=== PATIENT | male | born 1945 | race Caucasian/White ===

== ENCOUNTER 2016-07-20 10:51 | Inpatient (IN) | payer MEDICARE, BC ==
[2016-07-20] MEDS ORDERED: Acetaminophen 325 MG Tab PO ONE (11:43)
[2016-07-20] MEDS ORDERED: Sodium Chloride 0.9% 10 ML Syringe FLUSH PRN (11:43)
[2016-07-20] MEDS ORDERED: Sodium Chloride 0.9% 1,000 ML IV ONE (11:55)
[2016-07-20 12:09] LABS: CHLORIDE,CL 97 mmol/L (101-111); SODIUM,NA 134 mmol/L (135-145)
[2016-07-20] MEDS ORDERED: Levofloxacin/Dextrose 5%-Water 500 MG in Premix Bag 1 BAG IV ONE (12:33)
[2016-07-20] MEDS ORDERED: Dexamethasone 4 MG/ML SDV IVPUSH ONE (13:33)
[2016-07-20] MEDS ORDERED: Ketorolac 30 MG/ML SDV IVPUSH PRN ×2 (13:33→13:39)
[2016-07-20] MEDS ORDERED: Acetaminophen 500 MG Tab ONE (13:34)
[2016-07-20] MEDS ORDERED: Ketorolac 30 MG/ML SDV ONE (13:34)
[2016-07-20] MEDS ORDERED: Oseltamivir 75 MG Cap ONE (13:34)
[2016-07-20] MEDS: Oseltamivir 75 MG Cap PO SCH ×2 (13:42→21:38)
[2016-07-20] MEDS ORDERED: Zolpidem 5 MG Tab PO PRN (13:44)
[2016-07-20] MEDS ORDERED: Ondansetron 4 MG/2 ML SDV IVPUSH PRN ×2 (13:44→22:23)
[2016-07-20] MEDS ORDERED: Acetaminophen 325 MG Tab PO PRN (13:50)
--- NOTE | 2016-07-20 14:48 | ER ---
SUBJECTIVE: The patient is a 70-year-old male, who is normally fairly healthy. He has hypertension, but has been having a cold over the last week or so, just mild cold symptoms, but no specific shortness of breath. No chest pain. No nausea or vomiting. No bleeding. No bowel or bladder changes. No falls or trauma. He comes in today with his , because he has a fever this morning, and he has some confusion, and a little bit of hallucinations, and is not behaving like himself. He is walking around, very talkative, very interactive, and pleasant, but just appears somewhat confused, and was grabbing at things. His states that his symptoms began this morning at 05:00 a.m. He began to what she recalled "hallucinate", and she describes this as the patient picking buttons in the car while his was driving, trying to get out, does not know where he is. His had called the clinic and they told them to come to the ER. He denied any chest pain, shortness of breath. He did have a fever this morning. Apparently, he got mad at his when he could not get out of the car. He is not sure of his location or what day it is. He did take some DayQuil today, but his states that he has had DayQuil in the past and has never been bothersome. Again, no head trauma. No specific neurologic changes such as upper or lower extremity weakness, dysarthria, dysphagia, no vision changes, no syncope, or seizures. PAST MEDICAL HISTORY: Significant for hemochromatosis. He has had multiple bloodletting for this. He has hypertension. He has normally been fairly healthy. CURRENT MEDICATIONS: Include lisinopril 20 mg p.o. daily. ALLERGIES: He is not allergic to any medications. SOCIAL HISTORY: He is , here with his . Otherwise, noncontributory. REVIEW OF SYSTEMS: Fever today. Mild cold symptoms last week with a cough and some congestion. No neck pain or stiffness. No chest pain. No real shortness of breath. No abdominal pain. No back pain. No nausea or vomiting. No melena, BRBPR. No other bowel or bladder changes. He has been active, drinking, and eating okay. No bites, stings, or rashes. OBJECTIVE: Vital Signs: His height is 1.8 meters, weight is 86.2 kg. His temperature on arrival is 39.9, heart rate is 108, blood pressure is 161/89, oxygen sats 93% room air. General: He is very pleasant, smiling, talkative, interactive, absolutely very cooperative, and a healthy-appearing actually overall. However, he is confused where he is. He rambles on and states things that have occurred that his shakes her head and says no. He has no respiratory distress. HEENT: normocephalic and atraumatic. No specific sinus tenderness or fullness. Ears are unremarkable. Conjunctivae are clear. Mucous membranes are moist. Throat is clear. Neck: Full range of motion. No nuchal rigidity. No lymphadenopathy. Chest: It is nontender. It is clear. He has occasional cough. No respiratory distress. No wheezing, rhonchi, or rales. CV: RRR. Abdomen: Soft, benign. Back: No CVAT. Extremities: He has good pulses in all extremities. Lower extremities, no edema. No calf tenderness. He stands up well, ambulates up and down, moves all extremities well. Skin: Clear. Warm. Neurologic: No focal neurologic changes or weaknesses. No signs of CVA. He has no dysarthria. He will follow all commands. LAB/STUDIES: White count is normal at 8.7, he has no anemia. Platelets are mildly low at 127. His differential shows elevated PMNs at 81.2. No band cells. His sed rate is normal at 10. His electrolytes are fairly unremarkable. Sodium is 134, potassium 3.5, chloride is 97. His anion gap was normal. BUN and creatinine are normal. His glucose is 109. Lactic acid is normal at 1.5. His liver function tests are unremarkable. Amylase is normal. His urine is slightly cloudy, has trace protein, has some ketones, moderate occult blood, but is negative for leukocyte esterase, negative for nitrites. It is sent for culture. His CRP is elevated at 4.3. His chest x-ray is unremarkable. A noncontrast CAT scan of his head is also unremarkable. Electrocardiogram does not show any acute changes. EMERGENCY ROOM COURSE: He was given some Tylenol for his fever, it went down from 105.8 to 103.3 and continues to drop. He tolerated this well. He remained stable, pleasant, and cooperative, but remains in a somewhat confused state. I did discuss all the workup with he and his attendant . I also discussed this with the hospitalist, and discussed the patient's exam and the workup and all the findings to this point. He did agree to accept the patient. His blood is cultured, and his urine is cultured, and he was given a dose of Levaquin, and he will be transferred to the floor. Influenza is positive. ASSESSMENT: 1. Fever of unknown origin, normal WBC, lactate and CXR; however, FLU is positive 2. Mental status changes with workup, unremarkable, including CT head. 3. Mild cold symptoms with congestion and cough for the past week; CXR is NR for acute pulmonic diseases, including atypical PNA such as coccidiomycoses, etc, as pt was just recently in [place] and [place] area. 4. Patient with history of hypertension and hemochromatosis. PLAN: Admit into the hospital. Continue with care. The urine and blood cultures already been obtained. [facility] /[id number] JULIO
--- NOTE | 2016-07-20 15:04 | PCM.HP ---
H&P History of Present Illness - General Date of Service: 07/20/16 Admit Problem/Dx: Admission Diagnosis/Problem Admission Diagnosis/Problem Influenza due to influenza A virus - History of Present Illness Initial Comments - Free Text/Narative: 70-year-old gentleman with past medical history of hypertension presented the emergency room with the fever, chills, delirious, deep cough, sinus congestion, decrease in appetite started 5 days ago but got worse this morning. stated that patient woke up early this morning and he started dressing himself stating that is going for lunch. he was acting very unusual. patient states that his cough started 5 days ago but the fever and chills started days ago. Patient denies headache except when he coughs. He denies runny nose, sore throat, ear pain, postnasal drip, sinus pressure, shortness breath, wheezing, nausea, vomiting, change in vision, unilateral weakness, abdomen pain, diarrhea, dysuria , frequency or any urinary symptoms, rash, swelling lymph nodes, numbness, tingling, facial drooping. he denies recent change of weight.patient denies history of asthma, COPD, current or former smoking, lung disease, any chronic disease other than hypertension. patient was in [place] for 6 days and just left [place], driving, 1 days after his cough started in the emergency room patient temperature was 41.0 C, and according to set ER physician he was delirious. he was given Tylenol 650 mg but did not drop his temperature enough. whenI saw her in the emergency room he did not seem to be in acute distress but his said that he is still not himself. he felt very warm. I ordered Toradol 30 mg IV, Decadron 20 mg IV once, Tylenol 500 mg orally once. one hour later patient felt much better. His fever resolved. he received 1L of IV fluid as a bolus ER workup was consistent with positive influenza A.negative rapid strep test. WBC 8.7. Neutrophils 81.2%.mono 8.9%. Platelet 27.lactic acid 1.5, creatinine 1.0, BUN 18, sodium 1-4, potassium 3.5, glucose 109, CRP 4.3, AST 59, ALT 21. UA unremarkable - Related Data Allergies/Adverse Reactions: Allergies Allergy/AdvReac Type Severity Reaction Status Date / Time No Known Allergies Allergy Verified 07/20/16 14:02 Home Medications: Home Meds Gluc HCl/Csa/Anthony Hy/Hyalur Ac [Glucosamine Chondroitin] 1 each PO DAILY [History] Lisinopril 20 mg PO BID 07/20/16 [History] Past Medical History Cardiovascular History: Reports: Hypertension Hematologic History: Reports: Hemochromatosis - Infectious Disease History Infectious Disease History: Reports: Chicken pox Social & Family History - Family History Family Medical History: Noncontributory - Tobacco Use Smoking Status *Q: Never Smoker Second Hand Smoke Exposure: No - Caffeine Use Caffeine Use: Reports: Coffee, Soda - Recreational Drug Use Recreational Drug Use: No H&P Review of Systems - Review of Systems: Review Of Systems: See Below General: Reports: malaise HEENT: Reports: eye pain. Denies: vertigo Cardiovascular: Reports: no symptoms. Denies: chest pain Genitourinary: Reports: no symptoms Musculoskeletal: Denies: joint pain, muscle stiffness Skin: Reports: no symptoms Psychiatric: Reports: confusion. Denies: anxiety Neurological: Denies: Dizziness, Syncope Hematologic/Lymphatic: Denies: anemia, easy bleeding, swollen glands Immunologic: Denies: anaphylaxis, seasonal allergy Exam - Exam Exam: See Below - Vital Signs Vital Signs: Last Vital Signs Temp 37.1 C 07/20/16 13:44 Pulse 90 07/20/16 13:44 Resp 20 07/20/16 13:44 BP 125/72 07/20/16 13:44 Pulse Ox 97 07/20/16 13:46 Weight: 89.448 kg - Exam General: alert, oriented, cooperative, mild distress. No: severe distress, sedated, lethargic, obtunded HEENT: Conjunctiva clear, EACs clear, EOMI, Hearing intact, Nares patent, Normal nasal septum, Posterior pharynx clear, Pupils equal, Pupils reactive, TMs clear, Other (dry mucosa, edematous nares, no sinus tenderness), PERRLA Neck: supple, trachea midline, full range of motion. No: lymphadenopathy, JVD, thyromegaly Lungs: Clear to auscultation, Normal respiratory effort. No: Crackles, Rales, Rhonchi, Rub, Stridor, Wheezing Cardiovascular: regular rate, regular rhythm, normal S1, normal S2 Abdomen: normal bowel sounds, soft. No: organomegaly, peritoneal signs, distention, guarding, rigidity, rebound, tenderness (Male) Exam: No hernia Back Exam: normal inspection Extremities: normal inspection. No: clubbing, cyanosis, calf tenderness, edema Skin: warm, dry, intact. No: rash, petechia, ecchymosis Neurological: cranial nerves intact, reflexes equal bilateral, strength equal bilateral, normal speech. No: focal deficit, Babinski, clonus, reflexes unequal Neuro Extensive - Mental Status: alert, oriented x3, normal mood/affect, normal cognition, memory intact Neuro Extensive - Motor, Sensory, Reflexes: CN II-XII intact, normal gait, normal reflexes Psychiatric: alert, normal affect, normal mood. No: agitated, suicidal ideation , homicidal ideation, hallucinations - Patient Data Result Diagrams: 07/20/16 11:35 07/20/16 11:35 Rodriguez Results last 24 hrs: Microbiology 07/20/16 13:04 Influenza Type A Antigen Screen - Final Nasopharyngeal Swab Positive Influenza A Ag Influenza Type B Antigen Screen - Final NEGATIVE INFLUENZA B VIRUS AG 07/20/16 13:04 Group A Streptococcus Rapid Screen - Final Throat NEGATIVE STREP A SCREEN *Q Meaningful Use (ADM) - VTE *Q VTE Criteria *Q: - Stroke *Q Stroke Criteria *Q: - AMI *Q AMI Criteria *Q: - Problem List (1) Sepsis SNOMED Code(s): 43101979 ICD Code: A41.9 - SEPSIS, UNSPECIFIED ORGANISM Status: Acute Priority: High Current Visit: Yes (2) Influenza A SNOMED Code(s): 083729587 ICD Code: J10.1 - FLU DUE TO OTH IDENT INFLUENZA VIRUS W OTH RESP MANIFEST Status: Acute Priority: High Current Visit: Yes (3) Acute encephalopathy SNOMED Code(s): 3679082 ICD Code: G93.40 - ENCEPHALOPATHY, UNSPECIFIED Status: Acute Priority: High Current Visit: Yes (4) Hypokalemia SNOMED Code(s): 41869205 ICD Code: E87.6 - HYPOKALEMIA Status: Acute Priority: Low Current Visit : Yes (5) Hyponatremia SNOMED Code(s): 91694741 ICD Code: E87.1 - HYPO-OSMOLALITY AND HYPONATREMIA Status: Acute Priority : Low Current Visit: Yes (6) Hypertension SNOMED Code(s): 05176844 ICD Code: I10 - ESSENTIAL (PRIMARY) HYPERTENSION Status: Chronic Current Visit: Yes Problem List Initiated/Reviewed/Updated: Yes Orders Last 24hrs: Active Orders 24 hr Category Date Time Status Patient Status [ADT] Routine ADT 07/20/16 13:44 Active Intake and Output [RC] Q6H Care 07/20/16 13:46 Active Oxygen Therapy [RC] PRN Care 07/20/16 13:44 Active Pulse Oximetry [RC] PRN Care 07/20/16 13:46 Active Up ad Eli [RC] ASDIRECTED Care 07/20/16 13:44 Active VTE/DVT Education [RC] PER UNIT ROUTINE Care 07/20/16 13:44 Active Vital Signs [RC] Q4H Care 07/20/16 13:44 Active Regular Diet [DIET] Diet 07/20/16 Breakfast Active BASIC METABOLIC PANEL,BMP [CHEM] AM Lab 07/21/16 05:11 Ordered C-REACTIVE PROTEIN [REF] Routine Lab 07/21/16 05:00 Ordered CBC WITH AUTO DIFF [HEME] AM Lab 07/21/16 05:11 Ordered CULTURE STREP A CONFIRMATION [RM] Stat Lab 07/20/16 13:04 Results STREP SCRN A RAPID W CULT CONF [RM] Stat Lab 07/20/16 13:04 Results Acetaminophen [Tylenol] Med 07/20/16 13:50 Active 650 mg PO Q6H PRN Enoxaparin [Lovenox] Med 07/20/16 21:00 Active 40 mg SUBCUT Q12HR Ketorolac [Toradol] Med 07/20/16 13:39 Active 15 mg IVPUSH Q6H PRN Lactated Ringers [Ringers, Lactated] 1,000 ml Med 07/20/16 13:45 Active IV ASDIRECTED Ondansetron [Zofran] Med 07/20/16 13:44 Active 4 mg IVPUSH Q6H PRN Oseltamivir [Tamiflu] Med 07/20/16 21:00 Active 75 mg PO BID Zolpidem [Ambien] Med 07/20/16 13:44 Active 5 mg PO BEDTIME PRN Resuscitation Status Routine Resus Stat 07/20/16 13:44 Ordered Medication Orders Acetaminophen (Tylenol) 650 mg PO Q6H PRN PRN Reason: fever, pain Enoxaparin Sodium (Lovenox) 40 mg SUBCUT Q12HR EULOGIO Lactated Ringer's (Ringers, Lactated) 1,000 mls @ 100 mls/hr IV ASDIRECTED EULOGIO Ketorolac Tromethamine (Toradol) 15 mg IVPUSH Q6H PRN PRN Reason: fever, body aches Stop: 07/25/16 13:34 Last Admin: 07/20/16 13:49 Dose: 15 mg Ondansetron HCl (Zofran) 4 mg IVPUSH Q6H PRN PRN Reason: Nausea/Vomiting Oseltamivir Phosphate (Tamiflu) 75 mg PO BID [facility] Stop: 07/25/16 21:01 Last Admin: 07/20/16 13:42 Dose: 75 mg Sodium Chloride (Saline Flush) 10 ml FLUSH ASDIRECTED PRN PRN Reason: Keep Vein Open Last Admin: 07/20/16 13:42 Dose: 10 ml Zolpidem Tartrate (Ambien) 5 mg PO BEDTIME PRN PRN Reason: Sleep Assessment/Plan Comment:: sepsis, due to viral infection with influenza A. we'll give t2 L of IV fluids as a bolus, then continue on LR at 100 cc per hour Tamiflu 75 mg b.i.d. for 5 days recheck lactic acid Influenza A Chest x-ray is unremarkable for acute findings patient said he received his influenza shot this year Tamiflu 75 mg b.i.d. for 5 days He received one dose of Decadron 20 mg IV once and Toradol 30 mg IV once in ER Toradol 15 mg every 6 hours as needed for fever and body aches IV fluids infusion Encouraged oral fluid intake Acute encephalopathy Due to sepsis from an influenza CT of the head did not show any acute findings however it showed chronic lacunar infarct right cerebral white matter. I discussed that with patient. Patient denies history of stroke. I informed him to discuss that with his primary care provider and he agreed We'll treat the cause as above Hypokalemia, mild We'll replace orally was 40 KCl hypernatremia, mild Encourage oral fluid Hypertension we'll hold his listener probe since he is having sepsis and resume it if his blood pressure gets high today otherwise we'll address it tomorrow patient is full code Lovenox for DVT prophylaxis Plan of care was discussed with patient and he verbalized understanding and agreed with
[2016-07-20] MEDS ORDERED: Potassium Chloride 10 MEQ Tab.ER PO ONE (15:22)
[2016-07-20] MEDS: Lactated Ringers 1,000 ML IV SCH (15:38)
[2016-07-20] MEDS: Aspirin 81 MG Tab.Chew PO SCH (17:11)
[2016-07-20] MEDS: Enoxaparin 40 MG/0.4 ML Syringe SUBCUT SCH (21:40)
[2016-07-20] MEDS ORDERED: Benzocaine/Cetylpyridinium/Menthol Lozenge MUCMEM PRN (22:06)
[2016-07-21] MEDS: Lactated Ringers 1,000 ML IV SCH (01:32)
[2016-07-21 07:06] LABS: CHLORIDE,CL 104 mmol/L (101-111); SODIUM,NA 136 mmol/L (135-145)
--- NOTE | 2016-07-21 09:06 | PCM.PN ---
- General Info Date of Service: 07/21/16 Admission Dx/Problem (Free Text): Admission Diagnosis/Problem Admission Diagnosis/Problem Influenza due to influenza A virus Functional Status: Reports: pain controlled, ambulating, urinating - Review of Systems General: Reports: Appetite (good). Denies: Fever, Chills HEENT: Denies: headaches, sinus congestion, sore throat, visual changes Pulmonary: Denies: shortness of breath, cough, sputum, wheezing Cardiovascular: Denies: Chest Pain, Dyspnea on Exertion, Lightheadedness Gastrointestinal: Denies: Abdominal pain, Diarrhea, Nausea, Vomiting Genitourinary: Denies: dysuria, burning, urgency, flank pain Musculoskeletal: Denies: neck pain, shoulder pain, leg pain, joint pain Skin: Denies: cyanosis, jaundice, bruising, pruritis, rash Neurological: Denies: Confusion, Headache, Numbness, Tingling Psychiatric: Denies: confusion, anxiety - Patient Data Vitals - most recent: Last Vital Signs Temp 36.9 C 07/21/16 07:50 Pulse 63 07/21/16 07:50 Resp 20 07/21/16 07:50 BP 167/81 H 07/21/16 07:50 Pulse Ox 99 07/21/16 07:50 Weight - most recent: 89.448 kg I&O - last 24 hours: Intake & Output 07/20/16 07/21/16 07/21/16 22:59 06:59 14:59 Intake Total 958 2099 Output Total 1350 450 Balance 958 749 -450 Lab Results last 24 hrs: Laboratory Results - last 24 hr 07/20/16 07/21/16 07/21/16 Range/Units 15:35 06:25 06:35 WBC 14.1 H (5.0-10.0) 10^3/uL RBC 4.09 L (4.6-6.2) 10^6/uL Hgb 13.5 L (14.0-18.0) g/dL Hct 38.5 L (40.0-54.0) % MCV 94.1 (80-100) fL MCH 33.0 (27.0-34.0) pg MCHC 35.1 H (33.0-35.0) g/dL Plt Count 114 L (150-450) 10^3/uL Neut % (Auto) 88.3 H (42.2-75.2) % Lymph % (Auto) 8.1 L (20.5-50.1) % [place] % (Auto) 3.5 (2-8) % Eos % (Auto) 0.0 L (1.0-3.0) % Baso % (Auto) 0.1 (0.0-1.0) % Sodium (135-145) mmol/L Potassium (3.6-5.0) mmol/L Chloride (101-111) mmol/L Carbon Dioxide (21.0-31.0) mmol/L Anion Gap BUN (7-18) mg/dL Creatinine (0.6-1.3) mg/dL Est Cr Clr Drug Dosing mL/min Estimated GFR (MDRD) Glucose (74-105) mg/dL Lactic Acid 1.1 (0.5-2.2) mmol/L Calcium (8.4-10.2) mg/dl C-Reactive Protein 8.9 H (0.0-1.3) mg/dL 07/21/16 Range/Units 06:35 WBC (5.0-10.0) 10^3/uL RBC (4.6-6.2) 10^6/uL Hgb (14.0-18.0) g/dL Hct (40.0-54.0) % MCV (80-100) fL MCH (27.0-34.0) pg MCHC (33.0-35.0) g/dL Plt Count (150-450) 10^3/uL Neut % (Auto) (42.2-75.2) % Lymph % (Auto) (20.5-50.1) % [place] % (Auto) (2-8) % Eos % (Auto) (1.0-3.0) % Baso % (Auto) (0.0-1.0) % Sodium 136 (135-145) mmol/L Potassium 3.9 (3.6-5.0) mmol/L Chloride 104 (101-111) mmol/L Carbon Dioxide 25.0 (21.0-31.0) mmol/L Anion Gap 10.9 BUN 14 (7-18) mg/dL Creatinine 0.7 (0.6-1.3) mg/dL Est Cr Clr Drug Dosing 103.09 mL/min Estimated GFR (MDRD) > 60 Glucose 133 H (74-105) mg/dL Lactic Acid (0.5-2.2) mmol/L Calcium 8.5 (8.4-10.2) mg/dl C-Reactive Protein (0.0-1.3) mg/dL Rodriguez Results last 24 hrs: Microbiology 07/20/16 13:04 Quick Strep Confirmation Culture - Final Throat NO GROUP A STREP ISOLATED Group A Streptococcus Rapid Screen - Final NEGATIVE STREP A SCREEN 07/20/16 13:04 Influenza Type A Antigen Screen - Final Nasopharyngeal Swab Positive Influenza A Ag Influenza Type B Antigen Screen - Final NEGATIVE INFLUENZA B VIRUS AG Med Orders - Current: Current Medications Acetaminophen (Tylenol) 650 mg PO Q6H PRN PRN Reason: fever, pain Aspirin (Aspirin) 81 mg PO DAILY [facility] Last Admin: 07/20/16 17:11 Dose: 81 mg Benzocaine/Menthol (Cepacol Sore Throat) 1 lozenge MUCMEM Q4HR PRN PRN Reason: Cough Last Admin: 07/20/16 23:42 Dose: 1 lozenge Enoxaparin Sodium (Lovenox) 40 mg SUBCUT Q12HR [facility] Last Admin: 07/20/16 21:40 Dose: 40 mg Lactated Ringer's (Ringers, Lactated) 1,000 mls @ 100 mls/hr IV ASDIRECTED [facility] Last Admin: 07/21/16 01:32 Dose: 100 mls/hr Ketorolac Tromethamine (Toradol) 15 mg IVPUSH Q6H PRN PRN Reason: fever, body aches Stop: 07/25/16 13:34 Last Admin: 07/20/16 13:49 Dose: 15 mg Ondansetron HCl (Zofran) 4 mg IVPUSH Q4H PRN PRN Reason: Nausea/Vomiting Oseltamivir Phosphate (Tamiflu) 75 mg PO BID [facility] Stop: 07/25/16 21:01 Last Admin: 07/20/16 21:38 Dose: 75 mg Sodium Chloride (Saline Flush) 10 ml FLUSH ASDIRECTED PRN PRN Reason: Keep Vein Open Last Admin: 07/20/16 13:42 Dose: 10 ml Zolpidem Tartrate (Ambien) 5 mg PO BEDTIME PRN PRN Reason: Sleep Discontinued Medications Acetaminophen (Tylenol) 650 mg PO NOW ONE Stop: 07/20/16 11:44 Last Admin: 07/20/16 11:49 Dose: 650 mg Acetaminophen (Tylenol Extra Strength) Confirm Administered Dose 500 mg .ROUTE .STK-MED ONE Stop: 07/20/16 13:35 Last Admin: 07/20/16 13:42 Dose: Not Given Dexamethasone (Dexamethasone) 20 mg IVPUSH ONETIME ONE Stop: 07/20/16 13:34 Last Admin: 07/20/16 13:42 Dose: 20 mg Sodium Chloride (Normal Saline) 1,000 mls @ 999 mls/hr IV .BOLUS ONE Stop: 07/20/16 12:55 Last Infusion: 07/20/16 15:37 Dose: Infused Levofloxacin/Dextrose 500 mg/ (Premix) 100 mls @ 100 mls/hr IV ONETIME ONE Stop: 07/20/16 13:32 Last Admin: 07/20/16 12:43 Dose: 100 mls/hr Ketorolac Tromethamine (Toradol) 30 mg IVPUSH Q6H PRN PRN Reason: fever, body aches Stop: 07/25/16 13:34 Ketorolac Tromethamine (Toradol) Confirm Administered Dose 30 mg .ROUTE .STK- MED ONE Stop: 07/20/16 13:35 Last Admin: 07/20/16 15:11 Dose: Not Given Ondansetron HCl (Zofran) 4 mg IVPUSH Q6H PRN PRN Reason: Nausea/Vomiting Oseltamivir Phosphate (Tamiflu) Confirm Administered Dose 75 mg .ROUTE .STK-MED ONE Stop: 07/20/16 13:35 Last Admin: 07/20/16 13:41 Dose: Not Given Potassium Chloride (Klor-Con 10) 40 meq PO ONETIME ONE Stop: 07/20/16 15:23 Last Admin: 07/20/16 15:37 Dose: 40 meq - Exam Quality Assessment: DVT prophylaxis. No: supplemental oxygen, urine catheter, skin breakdown General: alert, oriented, cooperative, no acute distress HEENT: Pupils equal, Mucous membr. moist/pink Neck: supple. No: no JVD, lymphadenopathy Lungs: No: Clear to auscultation, Normal respiratory effort, Crackles, Wheezing Cardiovascular: Regular Rate, Regular Rhythm, Murmurs Abdomen: bowel sounds present, soft, no tenderness, no distension. No: rebound , guarding (Male) Exam: Deferred Back Exam: normal inspection, full range of motion Extremities: no edema, no tenderness/swelling, no calf tenderness Skin: warm, dry, intact Neurological: no new focal deficit, normal speech Psy/Mental Status: alert, normal affect, normal mood - Problem List Review Problem List Initiated/Reviewed/Updated: Yes - My Orders Last 24 Hours: My Active Orders 07/20/16 22:06 Benzocaine/Cetylpyrd/Menthol [Cepacol Sore Throat] 1 lozenge MUCMEM Q4HR PRN 07/20/16 22:23 Ondansetron [Zofran] 4 mg IVPUSH Q4H PRN - Plan Plan:: This is a 70-year-old gentleman with past medical history of hypertension presented the emergency room with the fever, chills, delirious, deep cough, sinus congestion, decrease in appetite started 5 days ago but got worse this morning. Patient was in [place] for 6 days and just left [place], driving, 1 days after his cough started In the emergency room patient temperature was 105.8 F, and according to ER physician he was delirious. he was given Tylenol 650 mg but did not drop his temperature later he was given Toradol 30 mg IV, Decadron 20 mg IV once, Tylenol 500 mg orally once and one hour later patient felt much better. His fever resolved. he received 1L of IV fluid as a bolus ER workup was consistent with positive influenza A.negative rapid strep test. IMPRESSION AND PLAN sepsis, due to viral infection with influenza A. - He has received 2 L of IV fluids as a bolus, was on LR at 100 cc per hour - Tamiflu 75 mg b.i.d. for 5 days -He is eating and drinnking well , will stop IV fluids Influenza A Chest x-ray is unremarkable for acute findings patient said he received his influenza shot this year -Continue Tamiflu 75 mg b.i.d. for 5 days -He received one dose of Decadron 20 mg IV once and Toradol 30 mg IV once in ER - Toradol 15 mg every 6 hours as needed for fever and body aches - Will stop IV fluids infusion - Encouraged oral fluid intake Acute encephalopathy -Due to sepsis from an influenza - CT of the head did not show any acute findings however it showed chronic lacunar infarct right cerebral white matter. Hypokalemia, mild -He has received potassium chloride 40 meq X 1 dose orally l -Potassium is acceptable hypernatremia, mild -Encourage oral fluid, sodium is acceptable after IV fluids Hypertension BP is elevated today and will restart Lisinopril at 20 mg BID Code status: patient is full code DVT Prophylaxis: on Lovenox Disposition: Will likely be able to go home tomorrow
[2016-07-21] MEDS: Oseltamivir 75 MG Cap PO SCH ×2 (09:14→20:51)
[2016-07-21] MEDS: Aspirin 81 MG Tab.Chew PO SCH (09:14)
[2016-07-21] MEDS: Enoxaparin 40 MG/0.4 ML Syringe SUBCUT SCH ×2 (09:15→20:50)
[2016-07-21] MEDS: Lisinopril 20 MG Tab PO SCH ×2 (10:01→20:51)
[2016-07-22] MEDS: Oseltamivir 75 MG Cap PO SCH (08:41)
[2016-07-22] MEDS: Lisinopril 20 MG Tab PO SCH (08:41)
[2016-07-22] MEDS: Aspirin 81 MG Tab.Chew PO SCH (08:42)
[2016-07-22] MEDS: Enoxaparin 40 MG/0.4 ML Syringe SUBCUT SCH (08:42)
--- NOTE | 2016-07-22 08:52 | PCM.DCSUM1 ---
Discharge Summary - Hospital Course Free Text/Narrative:: He is feeling very good today, slept very well last night and had no fever or chill , No nausea or Vomiting and appetite is good HPI Initial Comments: This is a 70-year-old gentleman with past medical history of hypertension presented the emergency room with the fever, chills, delirious, deep cough, sinus congestion, decrease in appetite started 5 days ago but got worse this morning. Patient was in [place] for 6 days and just left [place], driving, 1 days after his cough started In the emergency room patient temperature was 105.8 F, and according to ER physician he was delirious. He was given Tylenol 650 mg but did not drop his temperature, later he was given Toradol 30 mg IV, Decadron 20 mg IV once, Tylenol 500 mg orally once and one hour later patient felt much better. His fever resolved. he received 1L of IV fluid as a bolus ER workup was consistent with positive influenza A.negative rapid strep test. - Discharge Data Discharge Date: 07/22/16 Discharge Disposition: Home, Self-Care 01 Condition: Good - Patient Summary/Data Recommended Follow-up Testing/Procedures: Follow up with PMD in a week after the discharge - Patient Instructions Diet: Regular Diet as Tolerated Driving: May Drive Today Showering/Bathing: May Shower Notify Provider of: Fever - Discharge Plan Prescriptions/Med Rec: Oseltamivir Phosphate [IJD: Tamiflu] 75 mg PO BID #5 capsule Home Medications: Home Meds Aspirin 81 mg PO DAILY 07/20/16 [History] Gluc HCl/Csa/Anthony Hy/Hyalur Ac [Glucosamine Chondroitin] 1 each PO DAILY [History] Lisinopril 20 mg PO BID 07/20/16 [History] Oseltamivir Phosphate [IJD: Tamiflu] 75 mg PO BID #5 capsule 07/22/16 [Rx] Patient Handouts: Influenza, Adult, [id number], Viral Encephalitis Forms: ED Department Discharge Referrals: PCP,Unobtain [Primary Care Provider] - - Discharge Summary/Plan Comment DC Time >30 min.: Yes Discharge Summary/Plan Comment: IMPRESSION AND PLAN sepsis, due to viral infection with influenza A. - He has received 2 L of IV fluids as a bolus, was on LR at 100 cc per hour, stopped on 07/21/16 - Tamiflu 75 mg b.i.d. for 5 days, completed 3 days course in hospital will go home with 2 more days medication -He is eating and drinnking well and will be able to go home Influenza A Chest x-ray is unremarkable for acute findings patient said he received his influenza shot this year -Continue Tamiflu 75 mg b.i.d. 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 Hypokalemia, mild -He has received potassium chloride 40 meq X 1 dose orally l -Potassium is acceptable hypernatremia, mild -Encourage oral fluid, sodium is acceptable after IV fluids Hypertension BP was elevated on 07/21/16 and BP acceptable after the restart Lisinopril of at 20 mg BID Disposition: He will be going home today and follow with PMD in a week - General Info Date of Service: 07/22/16 Admission Dx/Problem (Free Text: Admission Diagnosis/Problem Admission Diagnosis/Problem Influenza due to influenza A virus Functional Status: Reports: pain controlled, tolerating diet, ambulating, urinating - Review of Systems General: Reports: Appetite (good). Denies: Fever, Fatigue, Chills HEENT: Denies: headaches, post nasal drip, sinus congestion, visual changes Pulmonary: Denies: shortness of breath, pleuritic chest pain, cough, sputum, hemoptysis, wheezing Cardiovascular: Denies: Chest Pain, Palpitations, Dyspnea on Exertion, Lightheadedness Gastrointestinal: Denies: Abdominal pain, Diarrhea, Difficulty swallowing, Nausea, Vomiting Genitourinary: Denies: dysuria, frequency, burning, urgency, flank pain Musculoskeletal: Denies: neck pain, shoulder pain, leg pain Skin: Denies: cyanosis, jaundice, bruising, pruritis, rash Neurological: Denies: Confusion, Headache, Tingling Psychiatric: Denies: confusion, anxiety - Patient Data Vitals - Most Recent: Last Vital Signs Temp 36.3 C 07/22/16 08:14 Pulse 62 07/22/16 08:14 Resp 20 07/22/16 08:14 BP 143/84 H 07/22/16 08:41 Pulse Ox 99 07/22/16 08:14 Weight - Most Recent: 89.448 kg I&O - Last 24 hours: Intake & Output 07/21/16 07/22/16 07/22/16 22:59 06:59 14:59 Intake Total 1430 Balance 1430 HERNAN Results - Last 24 hrs: Microbiology 07/20/16 13:04 Quick Strep Confirmation Culture - Final Throat NO GROUP A STREP ISOLATED Group A Streptococcus Rapid Screen - Final NEGATIVE STREP A SCREEN Med Orders - Current: Current Medications Acetaminophen (Tylenol) 650 mg PO Q6H PRN PRN Reason: fever, pain Aspirin (Aspirin) 81 mg PO DAILY [facility] Last Admin: 07/22/16 08:42 Dose: 81 mg Benzocaine/Menthol (Cepacol Sore Throat) 1 lozenge MUCMEM Q4HR PRN PRN Reason: Cough Last Admin: 07/20/16 23:42 Dose: 1 lozenge Enoxaparin Sodium (Lovenox) 40 mg SUBCUT Q12HR [facility] Last Admin: 07/22/16 08:42 Dose: Not Given Ketorolac Tromethamine (Toradol) 15 mg IVPUSH Q6H PRN PRN Reason: fever, body aches Stop: 07/25/16 13:34 Last Admin: 07/20/16 13:49 Dose: 15 mg Lisinopril (Prinivil) 20 mg PO BID [facility] Last Admin: 07/22/16 08:41 Dose: 20 mg Ondansetron HCl (Zofran) 4 mg IVPUSH Q4H PRN PRN Reason: Nausea/Vomiting Oseltamivir Phosphate (Tamiflu) 75 mg PO BID [facility] Stop: 07/25/16 21:01 Last Admin: 07/22/16 08:41 Dose: 75 mg Sodium Chloride (Saline Flush) 10 ml FLUSH ASDIRECTED PRN PRN Reason: Keep Vein Open Last Admin: 07/20/16 13:42 Dose: 10 ml Zolpidem Tartrate (Ambien) 5 mg PO BEDTIME PRN PRN Reason: Sleep Discontinued Medications Acetaminophen (Tylenol) 650 mg PO NOW ONE Stop: 07/20/16 11:44 Last Admin: 07/20/16 11:49 Dose: 650 mg Acetaminophen (Tylenol Extra Strength) Confirm Administered Dose 500 mg .ROUTE .STK-MED ONE Stop: 07/20/16 13:35 Last Admin: 07/20/16 13:42 Dose: Not Given Dexamethasone (Dexamethasone) 20 mg IVPUSH ONETIME ONE Stop: 07/20/16 13:34 Last Admin: 07/20/16 13:42 Dose: 20 mg Sodium Chloride (Normal Saline) 1,000 mls @ 999 mls/hr IV .BOLUS ONE Stop: 07/20/16 12:55 Last Infusion: 07/20/16 15:37 Dose: Infused Levofloxacin/Dextrose 500 mg/ (Premix) 100 mls @ 100 mls/hr IV ONETIME ONE Stop: 07/20/16 13:32 Last Admin: 07/20/16 12:43 Dose: 100 mls/hr Lactated Ringer's (Ringers, Lactated) 1,000 mls @ 100 mls/hr IV ASDIRECTED [facility] Last Admin: 07/21/16 01:32 Dose: 100 mls/hr Ketorolac Tromethamine (Toradol) 30 mg IVPUSH Q6H PRN PRN Reason: fever, body aches Stop: 07/25/16 13:34 Ketorolac Tromethamine (Toradol) Confirm Administered Dose 30 mg .ROUTE .STK- MED ONE Stop: 07/20/16 13:35 Last Admin: 07/20/16 15:11 Dose: Not Given Ondansetron HCl (Zofran) 4 mg IVPUSH Q6H PRN PRN Reason: Nausea/Vomiting Oseltamivir Phosphate (Tamiflu) Confirm Administered Dose 75 mg .ROUTE .STK-MED ONE Stop: 07/20/16 13:35 Last Admin: 07/20/16 13:41 Dose: Not Given Potassium Chloride (Klor-Con 10) 40 meq PO ONETIME ONE Stop: 07/20/16 15:23 Last Admin: 07/20/16 15:37 Dose: 40 meq - Exam Quality Assessment: Denies: supplemental oxygen, urine catheter, DVT prophylaxis General: Reports: alert, oriented, cooperative, no acute distress HEENT: Reports: Pupils equal, Mucous membr. moist/pink Neck: Reports: supple, no JVD, no thyromegaly. Denies: lymphadenopathy, thyromegaly Lungs: Reports: Clear to auscultation, Normal respiratory effort. Denies: Crackles, Wheezing Abdomen: Reports: bowel sounds present, soft, no tenderness, no distension (Male) Exam: Deferred Rectal (Males) Exam: Deferred Back Exam: Reports: normal inspection, full range of motion Extremities: Reports: no edema, no clubbing, no calf tenderness Neurological: Reports: no new focal deficit, normal gait, normal speech, normal tone Psy/Mental Status: Reports: alert, normal affect, normal mood *Q Meaningful Use (DIS) - VTE *Q VTE Criteria *Q: - Stroke *Q Stroke Criteria *Q: - AMI *Q AMI Criteria *Q:
[2016-07-22 11:18] VITALS: BP 145/82
--- NOTE | 2016-08-10 12:11 | EKG ---
07/20/2016 - GILMA HURTADO - TIME OF EK hours. I reviewed the EKG and agree with the machine's reading. [facility] /[id number]
== END 2016-07-22 11:45 | disposition home or self-care (01) | DRG 872 ==
LOC: DL.ED 10:51 → DL.MS 12:53 → OBSVTOIN 12:53 → UNDOADMOB 12:53 → INTOOBSV 12:53 → DL.MS 13:50 → OBSVTOIN 13:50 → UNDODISIN 07-22 11:45
PROVIDERS: ADMIT Family Medicine; ATTEND Family Medicine
DX: A41.9 Sepsis, unspecified organism (principal); J10.1 Influenza due to other identified influenza virus with other respiratory manifestations; E87.1 Hypo-osmolality and hyponatremia; G93.40 Encephalopathy, unspecified; J10.81 Influenza due to other identified influenza virus with encephalopathy; I10 Essential (primary) hypertension; E83.119 Hemochromatosis, unspecified; E87.6 Hypokalemia
CPT/HCPCS: 36415; 70450; 71020; 80053; 81001; 82150; 83605; 85025; 85610; 85651; 86140; 87040; 87086; 93005 ×2; 96361; 96365; 99285; A9270; J1956; J7030; 80048; 87081; 87430; 87804; 93010; 96375; 99284; J1100; J1650; J1885; J7050; J7120